=== PATIENT | male | born 1985 | race Caucasian/White ===

== ENCOUNTER 2016-10-30 18:29 | Emergency (ER) | payer SELFPAY ==
[~2016-10-30 18:29] MED LIST: Iopamidol 370 76% 100 ML VIAL ONE
[2016-10-30] MEDS ORDERED: Fentanyl 100 MCG/2 ML VIAL ONE ×2 (18:46→19:31)
[2016-10-30] MEDS ORDERED: Sodium Chloride 0.9% 1,000 ML ONE (18:46)
[2016-10-30 18:52] LABS: #Basophils 0.1 thou/uL (0.0-0.2); #Eosinphils 0.4 thou/uL (0.0-0.7); #Lymphocytes 1.9 thou/uL (1.20-3.40); #Monocytes 0.5 thou/uL (0.11-0.59); #Neutrophils 7.4 thou/uL (1.40-6.50); %Basophils 0.8 % (0.0-1.0); %Eosinophils 4.3 % (0.0-10.0); %Lymphocytes 18.4 % (21.0-51.0); %Monocytes 5.2 % (0.0-10.0); %Neutrophils 71.3 % (42.0-75.0); Hemoglobin 15.1 g/dL (14.0-18.0); Mean Corpuscular HGB CONC 35.3 g/dL (32.0-36.0); Mean Corpuscular Hemoglobin 31.9 pg (27.0-31.0); Mean Corpuscular Volume 90.2 fl (80.0-94.0); Mean Platelet Volume 6.7 fL (7.4-10.4); Platelet Count 236 thou/uL (130-400); RBC Distribution Width 12.2 % (11.5-14.5); Red Blood Cell (RBC) Count 4.75 mill/uL (4.70-6.10); White Blood Cell (WBC) Count 10.3 thou/uL (4.8-10.8)
[2016-10-30 19:03] LABS: ALT (SGPT) 16 U/L (8-55); AST (SGOT) 28 U/L (5-34); Albumin 4.2 g/dL (3.5-5.0); Alkaline Phosphatase 61 U/L (40-150); Anion Gap 16 mmol/L (10-20); BUN (Urea Nitrogen) 11 mg/dL (8.9-20.6); Bilirubin, Total 0.7 mg/dL (0.2-1.2); CKMB 4.6 ng/mL (0-6.6); Calc. Creatinine Clearance 0 mL/min (70-130); Calcium 9.6 mg/dL (7.8-10.44); Carbon Dioxide 24 mmol/L (22-29); Chloride 103 mmol/L (98-107); Estimated GFR-MDRD Greater than 90; Globulin 2.7 g/dL (2.4-3.5); Glucose 86 mg/dL (70-105); Lipase 19 U/L (8-78); Potassium 3.9 mmol/L (3.5-5.1); Protein, Total 6.9 g/dL (6.0-8.3); Sodium 139 mmol/L (136-145); Troponin I Less than 0.010 ng/mL (< 0.028)
[2016-10-30] MEDS ORDERED: Ondansetron HCl/PF 4 MG/2 ML Vial ONE (19:21)
--- NOTE | 2016-10-30 19:34 | CT ---
CERVICAL SPINE CT WITHOUT CONTRAST 10/30/2016 HISTORY: Neck contusion. Horse injury. COMPARISON: None. TECHNIQUE: Serial axial CT imaging at 2.5 mm intervals, from the skull base through the lung apices, without co ntrast. Coronal and sagittal reformatted imaging obtained. FINDINGS: The imaged lung apices appear unremarkable. The C1 ring is intact. The craniocervical junction, the atlantoaxial interspace, and the cervicothoracic junction appear wi thin normal limits. There is disk space narrowing with anterior and posterior osteophyte formation at C5-C6. No prevert ebral soft tissue swelling, fracture, or dislocation. IMPRESSION: 1. No acute findings. 2. Degenerative change at C5-C6. POS: [facility]
--- NOTE | 2016-10-30 19:51 | CT ---
CT CHEST CT ABODMEN CT PELVIS CT THORACIC SPINE CT LUMBAR SPINE 10/30/2016 HISTORY: Trauma. Pain. Fell off a mule. Stage II colon cancer. COMPARISON: None. TECHNIQUE: Serial axial CT imaging at 5 mm intervals obtained, from the thoracic inlet through the pubic symphy sis, with intravenous contrast. Coronal reformatted imaging of the chest, abdomen, and pelvis provi ded. Coronal and sagittal reformatted imaging of the thoracic and lumbar spine provided. FINDINGS: CHEST: There is no axillary, mediastinal, or hilar lymphadenopathy. There is no pleural, pericardi al, or mediastinal fluid. Vascular structures of the chest appear patent. There is no pneumothorax evident on either side. No endobronchial lesion is seen. The lung parenchyma appears grossly unre markable. The extraspinal osseous structures of the chest appear grossly unremarkable. There is mild cortical irregularity involving the posterior aspect of the left 11th rib, posteriorly . This could be the result of prior fracture. This does not have the appearance of an acute fractu re. Correlation with comparison imaging, if available, would be beneficial. This could be better a ssessed via follow-up bone scan, given the provided history of colon cancer. ABDOMEN AND PELVIS: No free intraperitoneal air or fluid is noted. The liver, spleen, pancreas, adrenal glands, and right kidney are unremarkable. Two small low densi ty lesions are seen within the left kidney, measuring up to 7 mm, too small to definitively characte rize. Limited assessment of the bowel without contrast media demonstrates no evidence for obstruction. Th e vascular structures of the abdomen/pelvis appear unremarkable. The extraspinal osseous structures of the abdomen/pelvis demonstrate small sclerotic foci within the ischium and the pubic bone, on the left, measuring up to 5-6 mm. No widening of the sacroiliac joints. No sacral fracture. No fracture of either inferior or superi or pubic ramus. No widening of the pubic symphysis. Neither hip is dislocation. THORACIC SPINE: No fracture or dislocation. LUMBAR SPINE: No fracture or dislocation. IMPRESSION: 1. No acute findings within the chest, abdomen, pelvis, thoracic spine, or lumbar spine. 2. There is mild cortical thickening involving the posterior aspect of the left 10th rib, significa nce uncertain. This may be on the basis of prior trauma. Correlation with comparison imaging may b e beneficial. No comparison imaging is available. 3. Small, sclerotic foci are noted within the pelvis. These likely represent benign bone islands b ut, given the provided history of colon cancer, a non-emergent follow-up bone scan is advised, unles s comparison imaging can be provided to document stability. 4. Small, low density areas within the left kidney, too small to characterize. Cysts are favored. Follow-up renal ultrasound suggested. CODE T POS: [facility]
[2016-10-30 20:00] LABS: Bilirubin Negative (Negative); Blood, Urine Negative (Negative); Clarity Clear (Clear); Glucose, Urine (Dipstick) Negative (Negative); Leukocyte Negative (Negative); Nitrite Negative (Negative); Protein, Urine (Dipstick) Negative (Neg-Trace); Urobilinogen 0.2 mg/dL (0.2-1.0)
--- NOTE | 2016-10-30 20:03 | RAD ---
FOUR VIEWS OF THE LEFT KNEE 10/30/2016 HISTORY: Trauma. Pain. COMPARISON: None. FINDINGS: There are prominent degenerative changes. There is moderate medial compartment narrowing and mild l ateral compartment narrowing. There is prominently osteophyte formation involving the medial tibial plateau and, to a lesser degree, the lateral tibial plateau. There is also osteophyte formation in volving the medial femoral condyle. There are ossific densities projecting in the suprapatellar bur sa and posterior to the distal left femur, suggesting intraarticular loose bodies. There is promine nt joint capsular distention, suggesting a large knee joint effusion. There is patellofemoral degen erative change. There is no displaced fracture or evidence of dislocation seen. IMPRESSION: 1. Prominent degenerative change with large knee joint effusion and intraarticular loose bodies. 2. No displaced fracture or dislocation is evident; however, if there is concern for a radial occul t fracture, a CT examination is advised. Alternative causes of knee joint effusion may include dege nerative change, infection, or acute soft tissue injury. POS: [facility]
[2016-10-30] MEDS ORDERED: Ketorolac Tromethamine 30 MG/ML VIAL ONE (20:15)
== END 2016-10-30 20:34 | disposition home or self-care (01) ==
LOC: NAV ERS 18:29
DX: S86.912A Strain of unspecified muscle(s) and tendon(s) at lower leg level, left leg, initial encounter (principal); S20.211A Contusion of right front wall of thorax, initial encounter; F43.10 Post-traumatic stress disorder, unspecified; F17.210 Nicotine dependence, cigarettes, uncomplicated; V80.010A Animal-rider injured by fall from or being thrown from horse in noncollision accident, initial encounter
CPT/HCPCS: 71260; 72125; 74177; 80053; 81003; 82553; 83690; 84484; 85025; 93005; 96374; 96375; 96376; J1885; J2405; J3010; J7050

== ENCOUNTER 2018-05-02 12:12 | Emergency (ER) | payer SELFPAY ==
[2018-05-02] MEDS ORDERED: diphenhydrAMINE 50 MG/ML VIAL ONE (12:31)
[2018-05-02] MEDS ORDERED: methylPREDNISolone Sod Succ/PF 125 MG/2 ML VIAL ONE (12:31)
== END 2018-05-02 13:33 | disposition home or self-care (01) ==
LOC: NAV ERS 12:12
DX: T63.441A Toxic effect of venom of bees, accidental (unintentional), initial encounter (principal); G40.909 Epilepsy, unspecified, not intractable, without status epilepticus; F17.210 Nicotine dependence, cigarettes, uncomplicated
CPT/HCPCS: J1200; J2930